=== PATIENT | male | born 1975 | race Caucasian/White ===

== ENCOUNTER 2023-05-10 12:08 | Emergency (ER) | payer BC ==
[2023-05-10] MEDS ORDERED: Sodium Chloride 0.9% 10 ML Syringe FLUSH PRN (12:16)
[2023-05-10 12:30] LABS: HEMATOCRIT 44.9 % (40.0-54.0); HEMOGLOBIN 15.9 g/dL (13.0-18.0); MEAN CORPUSCULAR HEMOGLOBIN 31.3 pg (27.0-32.0); MEAN CORPUSCULAR HGB CONC 35.4 g/dL (31.0-35.0); MEAN PLATELET VOLUME 10.1 fL (6.0-10.0); RED BLOOD CELL COUNT 5.08 M/uL (4.50-6.50); RED CELL DISTRIBUTION WIDTH 13.3 % (11.0-16.0); WHITE BLOOD CELL COUNT,WBC 6.9 K/uL (4.0-11.0)
[2023-05-10] MEDS ORDERED: Sodium Chloride 0.9% 1,000 ML IV SCH (12:30)
[2023-05-10] MEDS ORDERED: hydrALAZINE 20 MG/ML SDV IVPUSH ONE ×2 (12:45→13:38)
[2023-05-10 12:47] LABS: MAGNESIUM 2.1 mg/dL (1.8-2.4)
[2023-05-10 12:50] LABS: A/G RATIO 1.1 (0.8-2.0); ALANINE AMINOTRANSFERASE,ALT 50 U/L (12-78); ALKALINE PHOSPHATASE 54 U/L (46-116); ANION GAP 9.7 mmol/L (5.0-15.0); ASPARTATE AMNIOTRANSFERASE,AST 28 U/L (15-37); BILIRUBIN TOTAL 0.6 mg/dL (0.0-1.0); BLOOD UREA NITROGEN,BUN 14 mg/dL (8-26); BUN/CREATININE RATIO 12.2 (6-25); CALCIUM 9.6 mg/dL (8.5-10.1); CARBON DIOXIDE,CO2 28.2 mmol/L (21.0-32.0); CHLORIDE,CL 102 mmol/L (98-107); CREATININE 1.15 mg/dL (0.70-1.30); ESTIMATED GFR 78 mL/min (>60); GLUCOSE RANDOM 114 mg/dL (74-100); POTASSIUM,K 3.9 mmol/L (3.5-5.1); PROTEIN TOTAL,TP 7.7 g/dL (6.4-8.2); SODIUM,NA 136 mmol/L (136-145); TROPONIN I HIGH SENSITIVITY 31.4 pg/ml (<=60.4)
[2023-05-10] MEDS ORDERED: hydrALAZINE 20 MG/ML SDV ONE (12:54)
[2023-05-10] MEDS ORDERED: Morphine 4 MG/ML VIAL ONE (13:06)
[2023-05-10] MEDS ORDERED: Morphine 4 MG/ML VIAL IVPUSH SCH (13:15)
[2023-05-10 14:08] LABS: APPEARANCE,URINE CLEAR (CLEAR); BILIRUBIN,URINE NEGATIVE (NEGATIVE); COLOR,URINE YELLOW; GLUCOSE,URINE NEGATIVE (NEGATIVE); KETONES,URINE NEGATIVE (NEGATIVE); LEUKOCYTE ESTERASE,URINE NEGATIVE (NEGATIVE); NITRITE,URINE NEGATIVE (NEGATIVE); OCCULT BLOOD,URINE NEGATIVE (NEGATIVE); PROTEIN,URINE NEGATIVE (NEGATIVE); UROBILINOGEN,URINE 0.2 E.U./dL (0.2-1.0)
[2023-05-10] MEDS ORDERED: niCARdipine HCl 25 MG in Sodium Chloride 0.9% 240 ML IV ONE (14:30)
== END 2023-05-10 13:45 ==
LOC: LB.ED 12:08
DX: I61.9 Nontraumatic intracerebral hemorrhage, unspecified (principal); I16.1 Hypertensive emergency
CPT/HCPCS: 36415; 70450; 71045; 80053; 81003; 83735; 84100; 84484; 85027; 85379; 93005; 93010; 96365; 96375; 96376; 99284; 99285-25; J0360; J2270; J7030; J7050